=== PATIENT | female | born 1980 | race American Indian/Alaskan Native ===

== ENCOUNTER 2017-11-19 09:08 | Day surgery (SDC) | payer MEDICARE, OTHER ==
[~2017-11-19] VITALS: Ht 167.6 cm; Wt 119.8 kg
[~2017-11-19 09:08] MED LIST: 0; ALBIPROI INH; ALBU.083IS IH; ALBU3IS INH; ALBU90I INH; ALBU90OI6 INH; ALBU90OI61 INH; AMOX875 PO; AZIT250 PO; Amoxicillin500 MG PO; BACL10 PO; BECL40OI INH; BENICAR PO; BETH10 PO; BUDE.25 NEB; BUDE.5 NEB; BUPIVACAINE; CEFU500 PO; CEPH500 PO; CHOL10002 PO; CIPR250 PO; CIPR500 PO; CIPRO500 MG PO; CRANBERRY250 MG PO; CYCL10; CYCL10 PO; DULO30 PO; DULO60 PO; FLUSAL2505 IH; FURO20 PO; FURO40 PO; GABA300 PO; GABA300T24 PO; GABA600 PO; GENTAMICIN; HYDACE5 PO; HYDACE5325 PO; HYDACE7.5 PO; HYDMOR2 PO; IBUP600 PO; IBUP800 PO; IRRISO IR; LEVFLO500 PO; LEVO750 PO; LIDOCAINE; LOSA25 PO; MEDICAL MARIJUANA; METF500 PO; METO5A PO; MULVITMINE PO; NAPR500 PO; NITR100CA PO; OLME5TAB PO; ONDA4 PO; OXYACE5T PO; OXYACE7.5T PO; OXYB5 PO; OXYC5 PO; PARO20; PHENA100 PO; PHENA200 PO; POTA10T PO; POTCHL20ER PO; POTCIT5 PO; PRED10 PO; PROACE100 PO; PROG100 PO; PROM25 PO; PROM25S PR; Percocet 10-321 EACH PO; Prednisone20 MG PO; Pyridium100 MG PO; RXOXYACE PO; RXPROM25 PO; Robaxin-750750 MG PO; SULTRIDS PO; SUMA25 PO; TAMS.4ER PO; TIZA4 PO; TOPI25; TRAM50 PO; UROCIT-K15 MEQ PO; VARE1 PO; Ventolin Soln3 ML INH; [UNRECOGNIZED DRUG - OTHER]
== END 2017-11-19 10:50 | disposition home or self-care (01) ==
LOC: ORSCMMR 09:08
PROVIDERS: Internal Medicine Gastroenterology
PROC: 0DB98ZX Excision of Duodenum, Via Natural or Artificial Opening Endoscopic, Diagnostic (ICD-10-PCS; principal; 2017-11-19 11:00)
PROC: 0DB48ZX Excision of Esophagogastric Junction, Via Natural or Artificial Opening Endoscopic, Diagnostic (ICD-10-PCS; principal; 2017-11-19 11:00)
PROC: 0DB58ZX Excision of Esophagus, Via Natural or Artificial Opening Endoscopic, Diagnostic (ICD-10-PCS; principal; 2017-11-19 11:00)
PROC: 0DB68ZX Excision of Stomach, Via Natural or Artificial Opening Endoscopic, Diagnostic (ICD-10-PCS; principal; 2017-11-19 11:00)
DX: K92.0 Hematemesis (principal); K21.0 Gastro-esophageal reflux disease with esophagitis; K29.50 Unspecified chronic gastritis without bleeding; K44.9 Diaphragmatic hernia without obstruction or gangrene; I10 Essential (primary) hypertension; E88.81 Metabolic syndrome and other insulin resistance; E66.01 Morbid (severe) obesity due to excess calories; Z68.41 Body mass index [BMI] 40.0-44.9, adult; F17.210 Nicotine dependence, cigarettes, uncomplicated; Z79.899 Other long term (current) drug therapy
CPT/HCPCS: 82947; 88305; 88312; 88342; J2250; J3010; J7120

== ENCOUNTER → 2018-12-20 | Outpatient (CLI) | payer OTHER ==
[~2018-12-20] MED LIST changes: +Bactrim Ds Tab1 EACH PO
== END | disposition home or self-care (01) ==
LOC: LAB EV 11:08 → LAB SHORT 11:08
DX: L03.213 Periorbital cellulitis (principal)
CPT/HCPCS: 87070; 87077; 87147; 87186; 87205

== ENCOUNTER 2018-12-23 13:50 | Emergency (ER) | payer OTHER ==
[~2018-12-23] VITALS: Ht 167.6 cm; Wt 113.4 kg
[~2018-12-23 13:50] MED LIST changes: -Bactrim Ds Tab1 EACH PO
[2018-12-23] MEDS ORDERED: Bactrim Ds Tab1 EACH PO (15:25)
== END 2018-12-23 15:34 | disposition home or self-care (01) ==
LOC: ER 13:50
DX: H02.89 Other specified disorders of eyelid (principal); Z88.5 Allergy status to narcotic agent; Z88.8 Allergy status to other drugs, medicaments and biological substances; Z79.899 Other long term (current) drug therapy; J45.909 Unspecified asthma, uncomplicated; I10 Essential (primary) hypertension; E11.9 Type 2 diabetes mellitus without complications; F17.200 Nicotine dependence, unspecified, uncomplicated
CPT/HCPCS: 99282

== ENCOUNTER → 2019-11-18 | Outpatient (CLI) | payer OTHER ==
[~2019-11-18] MED LIST changes: +Bactrim Ds Tab1 EACH PO
== END | disposition home or self-care (01) ==
LOC: LAB SHORT 14:44 → LAB EV 14:44
DX: R10.9 Unspecified abdominal pain (principal)
CPT/HCPCS: 87086

== ENCOUNTER 2020-07-05 23:03 | Inpatient (IN) | payer OTHER ==
[~2020-07-05] VITALS: Ht 167.6 cm; Wt 117.6 kg
[~2020-07-05 23:03] MED LIST changes: -ALBU3IS INH; -ALBU90OI61 INH; -BUDE.25 NEB; -FURO40 PO; -LOSA25 PO; -UROCIT-K15 MEQ PO
[2020-07-05 23:58] LABS: PCO2 Arterial 30.4 mmHg (35-45); PO2 Arterial 68.8 mmHg (80-100); pH Blood Arterial 7.55 (7.35-7.45)
[2020-07-06 00:02] LABS: BASOPHILS ABSOLUTE AUTO 0.09 K/mm3 (0.00-0.23); BASOPHILS PERCENT AUTO 1 % (0-2); EOSINOPHILS ABSOLUTE AUTO 0.21 K/mm3 (0.00-0.68); EOSINOPHILS PERCENT AUTO 2 % (0-6); Hematocrit 47.9 % (33.0-51.0); Hemoglobin 16.6 g/dL (11.5-16.0); IMMATURE GRAN ABSOLUTE AUTO 0.04 K/mm3 (0.00-0.10); IMMATURE GRAN PERCENT AUTO 0 % (0-1); LYMPHOCYTES ABSOLUTE AUTO 3.68 K/mm3 (0.84-5.20); LYMPHOCYTES PERCENT AUTO 28 % (21-46); MONOCYTES ABSOLUTE AUTO 0.78 K/mm3 (0.16-1.47); MONOCYTES PERCENT AUTO 6 % (4-13); Mean Corpuscular HGB 31.3 pg (26.0-34.0); Mean Corpuscular HGB Conc 34.7 g/dL (31.5-36.5); Mean Corpuscular Volume 90 fL (80-100); Mean Platelet Volume 11.6 fL (9.1-12.4); NEUTROPHILS ABSOLUTE AUTO 8.45 K/mm3 (1.96-9.15); NEUTROPHILS PERCENT AUTO 64 % (41-73); Platelet Count 240 K/mm3 (150-400); RDW Coefficient Variation 12.2 % (11.7-14.2); RDW Standard Deviation 40.5 fL (35.1-46.3); White Blood Cell Count 13.25 K/mm3 (4.00-11.30)
[2020-07-06 00:20] LABS: Alanine Aminotransfer (ALT/SGP 55 U/L (12-78); Albumin, Blood 3.5 g/dL (3.4-5.0); Albumin/Globulin Ratio 0.7 (0.8-1.8); Alk Phos 151 U/L (50-136); Anion Gap 10 mmol/L (6-16); Aspartate Aminotrans (AST/SGOT 48 U/L (12-37); Bilirubin, Total 0.6 mg/dL (0.1-1.0); Blood Urea Nitrogen 14 mg/dL (8-24); Bun/Creatinine Ratio 16.6 (12.0-20.0); CO2, Blood 26 mmol/L (21-32); Chloride, Blood 101 mmol/L (98-108); Creatinine, Blood 0.85 mg/dL (0.40-1.00); Globulin, Blood 5.2 g/dL (2.2-4.0); Glomerular Filtration Rate >60 (60-); Glucose, Blood 198 mg/dL (70-99); Potassium, Blood 3.3 mmol/L (3.5-5.5); Sodium, Blood 137 mmol/L (136-145); Total Protein, Blood 8.7 g/dL (6.4-8.2); Troponin I <0.015 ng/mL (0.000-0.040)
[2020-07-06 05:35] LABS: BASOPHILS ABSOLUTE AUTO 0.02 K/mm3 (0.00-0.23); BASOPHILS PERCENT AUTO 0 % (0-2); EOSINOPHILS ABSOLUTE AUTO 0.01 K/mm3 (0.00-0.68); EOSINOPHILS PERCENT AUTO 0 % (0-6); Hematocrit 43.3 % (33.0-51.0); Hemoglobin 14.5 g/dL (11.5-16.0); IMMATURE GRAN ABSOLUTE AUTO 0.04 K/mm3 (0.00-0.10); IMMATURE GRAN PERCENT AUTO 0 % (0-1); LYMPHOCYTES ABSOLUTE AUTO 0.87 K/mm3 (0.84-5.20); LYMPHOCYTES PERCENT AUTO 9 % (21-46); MONOCYTES ABSOLUTE AUTO 0.06 K/mm3 (0.16-1.47); MONOCYTES PERCENT AUTO 1 % (4-13); Mean Corpuscular HGB 31.3 pg (26.0-34.0); Mean Corpuscular HGB Conc 33.5 g/dL (31.5-36.5); Mean Corpuscular Volume 93 fL (80-100); Mean Platelet Volume 11.4 fL (9.1-12.4); NEUTROPHILS ABSOLUTE AUTO 9.21 K/mm3 (1.96-9.15); NEUTROPHILS PERCENT AUTO 90 % (41-73); Platelet Count 163 K/mm3 (150-400); RDW Coefficient Variation 12.5 % (11.7-14.2); Red Blood Cell Count 4.64 M/mm3 (3.80-5.20); White Blood Cell Count 10.21 K/mm3 (4.00-11.30)
[2020-07-06 05:53] LABS: Alanine Aminotransfer (ALT/SGP 47 U/L (12-78); Albumin, Blood 3.1 g/dL (3.4-5.0); Albumin/Globulin Ratio 0.7 (0.8-1.8); Alk Phos 136 U/L (50-136); Anion Gap 9 mmol/L (6-16); Aspartate Aminotrans (AST/SGOT 38 U/L (12-37); Bilirubin, Total 0.6 mg/dL (0.1-1.0); Blood Urea Nitrogen 15 mg/dL (8-24); Bun/Creatinine Ratio 19.3 (12.0-20.0); CO2, Blood 25 mmol/L (21-32); Calcium, Blood 8.9 mg/dL (8.5-10.1); Chloride, Blood 100 mmol/L (98-108); Creatinine, Blood 0.78 mg/dL (0.40-1.00); Globulin, Blood 4.5 g/dL (2.2-4.0); Glomerular Filtration Rate >60 (60-); Glucose, Blood 360 mg/dL (70-99); Potassium, Blood 3.2 mmol/L (3.5-5.5); Sodium, Blood 134 mmol/L (136-145); Total Protein, Blood 7.6 g/dL (6.4-8.2)
[2020-07-06 09:49] LABS: Adenovirus Not Detected (NOT DETECT); Bordetella pertussis Not Detected (NOT DETECT); Chlamydophila pneumoniae Not Detected (NOT DETECT); Coronavirus 229E Not Detected (NOT DETECT); Coronavirus HKU1 Not Detected (NOT DETECT); Coronavirus NL63 Not Detected (NOT DETECT); Coronavirus OC43 Not Detected (NOT DETECT); Human Metapneumovirus Not Detected (NOT DETECT); Human Rhinovirus/Enterovirus Detected (NOT DETECT); Influenza A/2009-H1 Not Detected (NOT DETECT); Influenza A/H1 Not Detected (NOT DETECT); Influenza A/H3 Not Detected (NOT DETECT); Influenza B Not Detected (NOT DETECT); Mycoplasma pneumoniae Not Detected (NOT DETECT); Parainfluenza Virus 1 Not Detected (NOT DETECT); Parainfluenza Virus 2 Not Detected (NOT DETECT); Parainfluenza Virus 3 Not Detected (NOT DETECT); Parainfluenza Virus 4 Not Detected (NOT DETECT); Respiratory Syncytial Virus Not Detected (NOT DETECT); SARS-Cov-2 (COVID-19), BioFire Not Detected (NOT DETECT)
[2020-07-06] MEDS ORDERED: CHANTIX1 MG PO (14:49)
[2020-07-06] MEDS ORDERED: CHLO25B PO (14:50)
[2020-07-06] MEDS ORDERED: POTASSIUM CITRA PO (14:51)
[2020-07-06] MEDS ORDERED: ALBU90OI61 INH (15:02)
[2020-07-06] MEDS ORDERED: PULMICORT0.5 MG/21 NEB (15:03)
[2020-07-06] MEDS ORDERED: IPRAT-ALBUT 0.5-3 ML NEB (15:05)
--- NOTE | 2020-07-06 17:30 | NUR ---
SHIFT SUMMARY PT ALERT AND ORIENTED. VS STABLE. PT TITRATED FROM 4L NC UPON ADMISSION TO ROOM AIR WITH O2 SATS REMAINING ABOVE 90%. BIPAP AT BEDSIDE IF NEEDED. HR NSR. BP STABLE. PT DENIES ANY PAIN. STATUS CHANGED TO MEDICAL AFTER ADMISSION. WILL CONTINUE TO MONITOR AND REPORT TO ONCOMING RN. CALL LIGHT IN REACH. PT CALLING APPROPRIATELY.
--- NOTE | 2020-07-06 18:43 | NUR ---
1840 RECEIVED PT TO RM 363 VIA W/C FROM PCU 15. PT ADMITTED FOR ASTHMA EXAC. ORIGINALLY ON 4L NC AND PLACED ON BIPAP WITH 4L O2. PT NOW ON RA. A&O, INDEPENDENT IN . NATY AND CO-OP. SR ON TELE, PER SANDY ENGLISH. IV SL. PT RECEIVING IV SOLUMEDROL. CBG'S AC/HS R/T STEROIDS. DENIED FURTHER NEEDS. CALL LT IN REACH.
[2020-07-06] MEDS ORDERED: FURO40 PO (20:30)
[2020-07-06] MEDS ORDERED: LOSA50 PO (20:31)
[2020-07-06] MEDS ORDERED: POTCHL20ER PO (20:31)
[2020-07-06] MEDS ORDERED: Adipex-P37.5 MG PO (20:32)
[2020-07-06] MEDS ORDERED: Phenergan25 M1 PO (20:33)
[2020-07-06] MEDS ORDERED: ZANAFLEX4 M2 PO (20:34)
--- NOTE | 2020-07-07 06:37 | NUR ---
07/07/20 0630 PT AWAKENED FOR AM MED. STATES SHE WANTS TO SLEEP MORE SHE DID NOT FALL ASLEEP UNTIL LATER THIS MORNING. DENIES ANY RESP. DISTRESS. MEDICATED FOR COUGH AND HEARTBURN AT 0100 WITH RELIEF.
--- NOTE | 2020-07-07 18:04 | NUR ---
SHIFT SUMMARY PT AOX4; CALLS APPROPRIATELY. PT IS INDEPENDENT IN THE ROOM; PT HAD AN EPISODE OF HYPERGLYCEMIA- BLOOD GLUCOSE OF 478 AFTER DRINKING CHOCOLATE MILK FROM VENDING MACHINE ; DR AWARE- CHANGED THE INSULIN TO HIGH SLIDING SCALE. PT C/O OF HEARTBURN AND HEADACHE; MEDICATED PER ORDERS. NO OTHER C.O AT THIS SHIFT. BED IS IN THE LOWEST POSITION;CALL LIGHTS WITHIN REACH AND WILL CONT MONITOR.
[2020-07-08 05:33] LABS: Albumin, Blood 2.7 g/dL (3.4-5.0); Anion Gap 5 mmol/L (6-16); Blood Urea Nitrogen 24 mg/dL (8-24); Bun/Creatinine Ratio 33.6 (12.0-20.0); CO2, Blood 29 mmol/L (21-32); Calcium, Blood 8.5 mg/dL (8.5-10.1); Chloride, Blood 104 mmol/L (98-108); Creatinine, Blood 0.72 mg/dL (0.40-1.00); Glomerular Filtration Rate >60 (60-); Glucose, Blood 261 mg/dL (70-99); Phosphorus, Blood 2.3 mg/dL (2.5-4.9); Potassium, Blood 3.6 mmol/L (3.5-5.5); Sodium, Blood 138 mmol/L (136-145)
--- NOTE | 2020-07-08 06:03 | NUR ---
PARTS CONSULTANT SUMMARY Patient feeling much better overnight. No complaints of pain or SOB. Cher was coughing very hard in the evening. Guaffenisen and tessalon pearles gave good relief so that she could sleep
[2020-07-08] MEDS ORDERED: BUDE.25 INH (13:45)
[2020-07-08] MEDS ORDERED: BENZ100A (13:46)
[2020-07-08] MEDS ORDERED: TUMS500 MG PO (13:47)
[2020-07-08] MEDS ORDERED: HUMALOG KW100 UNIT/1 SC (13:51)
[2020-07-08] MEDS ORDERED: Prednisone10 M1 PO (13:54)
[2020-07-08] MEDS ORDERED: METF500 PO (13:55)
[2020-07-08] MEDS ORDERED: Q-Tussin100 MG/5 M PO (13:59)
--- NOTE | 2020-07-08 14:32 | NUR ---
DISCHARGE PT DISCHARGE TO HOME AND WALKED PT TO [facility]. IV DCD. PT PROVIDED WITH HANDOUTS/INSTRUCTIONS/EDUCATION ABOUT MEDICATIONS SUCH INSULIN. ALSO EDUCATED THE PT ABOUT ASTHMA EXACERBATION; VERBALIZED UNDERSTANDING. VSS. PT RECEIVED THE WRITTEN ORDER FOR GLUCOMETER AND STRIP FROM
== END 2020-07-08 14:21 | disposition home or self-care (01) | DRG 189 ==
LOC: ER 23:03 → ERHOLD 07-06 01:57 → PCU 07-06 13:32 → MEDS 07-06 18:30
PROVIDERS: Emergency Medicine; Internal Medicine; ADMIT Internal Medicine
PROC: 5A09357 Assistance with Respiratory Ventilation, Less than 24 Consecutive Hours, Continuous Positive Airway Pressure (ICD-10-PCS; principal; 2020-07-06)
DX: J96.01 Acute respiratory failure with hypoxia (principal); J45.901 Unspecified asthma with (acute) exacerbation; E87.2 Acidosis; Z20.828 Contact with and (suspected) exposure to other viral communicable diseases; E87.6 Hypokalemia; F17.210 Nicotine dependence, cigarettes, uncomplicated; I10 Essential (primary) hypertension; Z87.442 Personal history of urinary calculi; E66.01 Morbid (severe) obesity due to excess calories; M32.9 Systemic lupus erythematosus, unspecified; Z68.38 Body mass index [BMI] 38.0-38.9, adult; E11.65 Type 2 diabetes mellitus with hyperglycemia; J20.6 Acute bronchitis due to rhinovirus
CPT/HCPCS: 0202U; 36415; 36600; 71045; 80053; 80069; 82803; 82947; 83605; 83880; 84484; 85025; 93005; 93010; 94640; 94644; 94660; 94760; 94762; 96361; 96365; 96366; 96375; 96376; 99291-25; A9270; A9270-GY; J1650; J1815; J2060; J2405; J2930; J3475; J3480; J7030; J7512

== ENCOUNTER → 2021-01-19 | Outpatient (CLI) | payer OTHER ==
[~2021-01-19] MED LIST changes: +ALBU90OI61 INH; +Adipex-P37.5 MG PO; +BENZ100A; +BUDE.25 INH; +CHANTIX1 MG PO; +CHLO25B PO; +FURO40 PO; +HUMALOG KW100 UNIT/1 SC; +IPRAT-ALBUT 0.5-3 ML NEB; +LOSA50 PO; +POTASSIUM CITRA PO; +PULMICORT0.5 MG/21 NEB; +Phenergan25 M1 PO; +Prednisone10 M1 PO; +Q-Tussin100 MG/5 M PO; +TUMS500 MG PO; +ZANAFLEX4 M2 PO
[2021-01-19 17:47] LABS: Source, Urine Voided
[2021-01-19 19:15] LABS: Appearance, Urine Clear (Clear); Bilirubin, Urine Neg (Neg); Blood, Urine 1+ (Neg); Color, Urine Yellow (P-Yellow); Glucose Qualitative, Urine 4+ (Neg); Ketones, Urine 1+ (Neg); Leukocyte Esterase, Urine Neg (Neg); Nitrite, Urine Neg (Neg); Protein, Urine Neg (Neg); Specific Gravity, Urine 1.015 (1.003-1.022); Urobilinogen, Urine NORM (Normal)
[2021-01-19 19:26] LABS: Bacteria Few /hpf; Squamous Epithelial Cells Few /hpf (Few); White Blood Cells, Urine 0-2 /hpf (0-5)
[2021-01-20 12:28] LABS: BASOPHILS ABSOLUTE AUTO 0.05 K/mm3 (0.00-0.23); BASOPHILS PERCENT AUTO 1 % (0-2); EOSINOPHILS ABSOLUTE AUTO 0.17 K/mm3 (0.00-0.68); EOSINOPHILS PERCENT AUTO 2 % (0-6); Hematocrit 49.2 % (33.0-51.0); Hemoglobin 16.4 g/dL (11.5-16.0); IMMATURE GRAN ABSOLUTE AUTO 0.02 K/mm3 (0.00-0.10); IMMATURE GRAN PERCENT AUTO 0 % (0-1); LYMPHOCYTES ABSOLUTE AUTO 2.07 K/mm3 (0.84-5.20); LYMPHOCYTES PERCENT AUTO 28 % (21-46); MONOCYTES ABSOLUTE AUTO 0.31 K/mm3 (0.16-1.47); MONOCYTES PERCENT AUTO 4 % (4-13); Mean Corpuscular HGB 30.4 pg (26.0-34.0); Mean Corpuscular HGB Conc 33.3 g/dL (31.5-36.5); Mean Corpuscular Volume 91 fL (80-100); Mean Platelet Volume 12.3 fL (9.1-12.4); NEUTROPHILS PERCENT AUTO 65 % (41-73); Platelet Count 194 K/mm3 (150-400); RDW Coefficient Variation 11.9 % (11.7-14.2); RDW Standard Deviation 39.8 fL (35.1-46.3); White Blood Cell Count 7.42 K/mm3 (4.00-11.30)
[2021-01-20 14:30] LABS: Alanine Aminotransfer (ALT/SGP 77 U/L (12-78); Albumin, Blood 3.5 g/dL (3.4-5.0); Albumin/Globulin Ratio 0.8 (0.8-1.8); Alk Phos 174 U/L (50-136); Anion Gap 6 mmol/L (6-16); Aspartate Aminotrans (AST/SGOT 78 U/L (12-37); Bilirubin, Total 0.8 mg/dL (0.1-1.0); Blood Urea Nitrogen 8 mg/dL (8-24); Bun/Creatinine Ratio 11.9 (12.0-20.0); CHOL/HDL RATIO 5.7; CO2, Blood 25 mmol/L (21-32); Calcium, Blood 9.1 mg/dL (8.5-10.1); Chloride, Blood 100 mmol/L (98-108); Cholesterol 195 mg/dL (50-200); Creatinine, Blood 0.67 mg/dL (0.40-1.00); Globulin, Blood 4.5 g/dL (2.2-4.0); Glomerular Filtration Rate >60 (60-); Glucose, Blood 317 mg/dL (70-99); HDL Cholesterol 34 mg/dL (>39); LDL/HDL RATIO 3.8; Low Density Lipoprotein Chol 130 mg/dL (0-110); Potassium, Blood 4.2 mmol/L (3.5-5.5); Sodium, Blood 131 mmol/L (136-145); Triglycerides 155 mg/dL (30-160); Very Low Density Lipoprot Chol 31 mg/dL (6-32)
== END | disposition home or self-care (01) ==
LOC: LAB SHORT 17:46
PROVIDERS: Nurse Practitioner Family
DX: T83.9XXA Unspecified complication of genitourinary prosthetic device, implant and graft, initial encounter (principal); E11.65 Type 2 diabetes mellitus with hyperglycemia; E55.9 Vitamin D deficiency, unspecified; N30.20 Other chronic cystitis without hematuria
CPT/HCPCS: 80053; 80061; 81001; 82306; 84443; 85025

== ENCOUNTER 2022-09-22 11:09 | Emergency (ER) | payer OTHER ==
[~2022-09-22] VITALS: Ht 167.6 cm; Wt 99.8 kg
[~2022-09-22 11:09] MED LIST changes: +INSULANI; +NOVOLOG FL100 UNIT/3
[2022-09-22] MEDS ORDERED: Robaxin750 MG (11:35)
[2022-09-22] MEDS ORDERED: OXYC5 PO (14:24)
[2022-09-22] MEDS ORDERED: METPRE4DP PO (14:24)
== END 2022-09-22 14:34 | disposition home or self-care (01) ==
LOC: ER 11:09
DX: M54.16 Radiculopathy, lumbar region (principal); F17.210 Nicotine dependence, cigarettes, uncomplicated; J45.909 Unspecified asthma, uncomplicated; I10 Essential (primary) hypertension; E11.9 Type 2 diabetes mellitus without complications
CPT/HCPCS: 72148; 96374; 96375; 99283-25; J1100; J1170; J1885; J2405

== ENCOUNTER 2023-02-23 11:04 | Emergency (ER) | payer OTHER ==
[~2023-02-23] VITALS: Ht 167.6 cm; Wt 104.3 kg
[~2023-02-23 11:04] MED LIST changes: +METPRE4DP PO; +Robaxin750 MG
[2023-02-23 14:51] LABS: BASOPHILS ABSOLUTE AUTO 0.05 K/mm3 (0.00-0.23); BASOPHILS PERCENT AUTO 1 % (0-2); EOSINOPHILS ABSOLUTE AUTO 0.17 K/mm3 (0.00-0.68); EOSINOPHILS PERCENT AUTO 2 % (0-6); IMMATURE GRAN ABSOLUTE AUTO 0.01 K/mm3 (0.00-0.10); IMMATURE GRAN PERCENT AUTO 0 % (0-1); LYMPHOCYTES ABSOLUTE AUTO 2.66 K/mm3 (0.84-5.20); LYMPHOCYTES PERCENT AUTO 33 % (21-46); MONOCYTES ABSOLUTE AUTO 0.43 K/mm3 (0.16-1.47); MONOCYTES PERCENT AUTO 5 % (4-13); Mean Corpuscular HGB 31.3 pg (26.0-34.0); Mean Corpuscular HGB Conc 34.9 g/dL (31.5-36.5); Mean Corpuscular Volume 90 fL (80-100); NEUTROPHILS ABSOLUTE AUTO 4.86 K/mm3 (1.96-9.15); NEUTROPHILS PERCENT AUTO 59 % (41-73); Platelet Count 197 K/mm3 (150-400); RDW Coefficient Variation 12.5 % (11.7-14.2); RDW Standard Deviation 41.1 fL (35.1-46.3); Red Blood Cell Count 4.79 M/mm3 (3.80-5.20); White Blood Cell Count 8.18 K/mm3 (4.00-11.30)
[2023-02-23 15:11] LABS: Albumin, Blood 2.7 g/dL (3.4-5.0); Albumin/Globulin Ratio 0.6 (0.8-1.8); Bilirubin, Total 0.6 mg/dL (0.1-1.0); Bun/Creatinine Ratio 17.1 (12.0-20.0); Calcium, Blood 8.4 mg/dL (8.5-10.1); Creatinine, Blood 0.64 mg/dL (0.40-1.00); Globulin, Blood 4.6 g/dL (2.2-4.0); Total Protein, Blood 7.3 g/dL (6.4-8.2)
[2023-02-23 15:45] VITALS: BP 101/90
== END 2023-02-23 16:25 | disposition home or self-care (01) ==
LOC: ER 11:04
PROVIDERS: Emergency Medicine
DX: E87.6 Hypokalemia (principal); R53.1 Weakness; I95.9 Hypotension, unspecified; R00.2 Palpitations; R74.01 Elevation of levels of liver transaminase levels; M32.9 Systemic lupus erythematosus, unspecified; R19.7 Diarrhea, unspecified; I10 Essential (primary) hypertension; J45.909 Unspecified asthma, uncomplicated; F17.200 Nicotine dependence, unspecified, uncomplicated; Z88.5 Allergy status to narcotic agent; Z88.6 Allergy status to analgesic agent; Z87.442 Personal history of urinary calculi; Z79.4 Long term (current) use of insulin; Z79.51 Long term (current) use of inhaled steroids; Z79.899 Other long term (current) drug therapy
CPT/HCPCS: 80053; 84702; 85025; 96374; 99284-25; A9270; J3480; J7030

== ENCOUNTER → 2024-01-21 | Outpatient (CLI) | payer OTHER | END | disposition home or self-care (01) | LOC: LAB SHORT 17:03 → LAB 17:03 | DX: N39.0 Urinary tract infection, site not specified (principal) ==